=== PATIENT | male | born 1980 ===

== ENCOUNTER 2021-11-19 11:31 | Outpatient (CLI) | payer OTHER ==
[~2021-11-19 11:31] MED LIST: PAXIL PO; TRAMADOL; XANAX0.25 MG PO
== END 2021-11-19 11:44 | disposition home or self-care (01) ==
LOC: TOM 11:31
PROVIDERS: ATTEND Orthopaedic Surgery Sports Medicine
DX: S42.131A Displaced fracture of coracoid process, right shoulder, initial encounter for closed fracture (principal)

== ENCOUNTER 2021-11-22 09:48 | Inpatient (IN) | payer OTHER ==
[~2021-11-22] VITALS: Ht 167.6 cm; Wt 76.2 kg
[2021-11-23] MEDS ORDERED: BACTRIM DS TAB1 EACH PO (08:05)
[2021-11-23] MEDS ORDERED: INTEGRA PLUS C1 EACH PO (08:08)
[2021-11-23] MEDS ORDERED: SENOKOT-S TABL1 EACH PO (08:12)
== END 2021-11-23 08:59 | disposition home or self-care (01) | DRG 517 ==
LOC: CIR.AMB 09:48 → SURG 23:47
PROVIDERS: ADMIT Orthopaedic Surgery Sports Medicine; ATTEND Orthopaedic Surgery Sports Medicine
PROC: 0PS504Z Reposition Right Scapula with Internal Fixation Device, Open Approach (ICD-10-PCS; principal; 2021-11-22 12:45)
DX: S42.131A Displaced fracture of coracoid process, right shoulder, initial encounter for closed fracture (principal); Z20.822 Contact with and (suspected) exposure to COVID-19